=== PATIENT | female | born 1975 | race Caucasian/White ===

== ENCOUNTER 2021-02-06 08:38 | Outpatient (CLI) | payer BC, SELFPAY ==
--- OUTSIDE RECORDS SUMMARY | 2021-02-06 08:42 | XMS_ITS ---
:1975 Author Care Team Providers Name Role Phone DR. MARY LINO Primary Care Provider [phone] AMBAR MCFADDEN OTHER [phone] MIGEL ROSARIO MD OTHER [phone] Allergies Code Code System Name Reaction Severity Status Onset 9869 RxNorm Penicillin g ? ? Active ? Sulfa ? ? Active ? (Sulfonamide Antibiotics) Medications Name Status Start Date Stop Date ? ? anastrozole 1 mg tablet Active 05/07/2020 Not avai lable 1 tablet every day by oral route. Calcium 500 + D Active ? Not available dexamethasone 4 mg tablet Completed ? 2016 gabapentin 300 mg capsule Completed ? 2018 hydromorphone 2 mg tablet Completed ? 2016 lorazepam 0.5 mg tablet Completed ? 08/02/20 17 Lupron Depot Active ? Not available ondansetron 4 mg Completed ? 03/05/2019 disintegrating tablet ondansetron 8 mg Completed ? 08/02/2017 disintegrating tablet oxycodone 5 mg tablet Completed ? 03/05/2019 prochlorperazine maleate 10 mg Completed ? 0 08/02/2017 tablet ranitidine 150 mg tablet Completed ? 017 tamoxifen 20 mg tablet Completed ? 0 Problems Name Status Onset Date Source ? Malignant Tumor of Breast Active 08/02/2017 ? Procedures Date Name Performed by ? 11/07/2018 Ercp Remove Duct Calculi Information not available 11/07/2018 Cholecystectomy Information not avai lable 01/17/2017 Lumpectomy and [place] Node Biopsy Info rmation not available Notes: 1.8 cm +LVI, 1/5 nodes pos, 2. 2 mm met (intramammary LN) 01/10/2017 Core Biopsy Breast Information not avai lable Notes: Left breast 1.3 cm UIQ mass and core biopsy of LN in axilla/axillary tail ? Tubal Ligation Information not avai lable Results Lab Results None recorded. Past Encounters 08/11/2020 Malignant Tumor of Breast Ava Benitez MD: [address] [facility], [address], [place] [address], Ph. 02/27/2020 Malignant Tumor of Breast Ava Benitez MD: [address], [place] [address], Ph. 08/27/2019 Malignant Tumor of Breast Ava Benitez MD: [address] [facility], [address], [place] [address], Ph. Social History Tobacco Smoking Status Never Smoker Vaccine List None recorded. Plan of Care Reminders Provider Appointments None ? ? recorded. Lab None ? ? recorded. Referral None ? ? recorded. Procedures None ? ? recorded. Surgeries None ? ? recorded. Imaging None ? ? recorded. Vitals 08/11/2020 11:00AM FOLLOW UP Height Weight BMI 5 ft 5 in 288 lbs 47.9 kg/m2 02/27/2020 09:00AM FOLLOW UP Height Weight BMI 5 ft 5 in 288 lbs 47.9 kg/m2 08/27/2019 09:00AM FOLLOW UP Height Weight BMI 5 ft 5 in 275 lbs 45.8 kg/m2 03/05/2019 01:30PM FOLLOW UP Height Weight BMI 5 ft 5 in 275 lbs 45.8 kg/m2 08/01/2018 11:30AM FOLLOW UP Height Weight BMI 5 ft 5 in 150 lbs 25 kg/m2 01/10/2018 11:00AM FOLLOW UP Height Weight BMI 5 ft 5 in 150 lbs 25 kg/m2 08/02/2017 10:30AM FOLLOW UP Height Weight BMI 5 ft 5 in 150 lbs 25 kg/m2 02/02/2017 10:00AM POST OP Height Weight BMI 5 ft 5 in 150 lbs 25 kg/m2 01/14/2017 10:00AM NEW CANCER Height Weight BMI 5 ft 5 in 275 lbs 45.8 kg/m2 01/10/2017 08:30AM NEW PT Height Weight BMI 5 ft 5 in 275 lbs 45.8 kg/m2
[2021-02-06 10:35] VITALS: BP 150/89; PULSE 74; RESP 22; TEMP 36.3; O2SAT 97
[2021-02-06] MEDS: Normal Saline 500 ML 30 ML IV (10:50)
[2021-02-06] MEDS: Normal Saline Flush 10 ML SYR IVP (10:51)
[2021-02-06 10:57] VITALS: BP 128/87; PULSE 69; RESP 20; TEMP 37.6; O2SAT 95
[2021-02-06 11:30] VITALS: BP 144/92; PULSE 68; RESP 18; TEMP 37.1; O2SAT 96
[2021-02-06 12:01] VITALS: BP 130/92; PULSE 66; RESP 18; TEMP 36.9; O2SAT 97
[2021-02-06 12:29] VITALS: BP 134/89; PULSE 64; RESP 20; TEMP 37.2; O2SAT 96
== END 2021-02-06 08:39 | disposition home or self-care (01) ==
LOC: INF 08:40
PROVIDERS: PCP Family Medicine; Visit Provider Family Medicine
DX: U07.1 COVID-19 (principal)
CPT/HCPCS: 96365

== ENCOUNTER 2022-04-01 13:26 | Outpatient (REF) | payer BC, SELFPAY ==
--- NOTE | 2022-04-01 10:50 | SKI_PTH ---
PATIENT: Alesha Mendoza LOC: [facility]#:[id number] AGE/SX: 46/F ROOM: RE04/01/[address]: Mirela Gardiner : 1975 BED: DIS: 04/01/2022 SPEC #: [id number] RECD: 04/01/22 18:11 STATUS: MARZENA REQ #: [id number] FRANCES: 04/01/22 10:[address]: Mirela Gardiner DEPT: Surgical Specimen RECD BY: Pippa Shepard ENTERED: 04/01/22 18:12 SP TYPE: RAQUEL FORMAN DR: Amy Jean-Baptiste Tissues: 1 - SKIN BIOPSY(SHAVE/PUNCH) 2 - SKIN BIOPSY(SHAVE/PUNCH) Procedures: SKIN LEVEL 4 Comments: [id number]
== END 2022-04-01 13:27 | disposition home or self-care (01) ==
LOC: NCHCN 13:26
PROVIDERS: PCP Family Medicine; Visit Provider Registered Nurse
DX: D23.72 Other benign neoplasm of skin of left lower limb, including hip (principal); D23.71 Other benign neoplasm of skin of right lower limb, including hip
CPT/HCPCS: 88305

== ENCOUNTER 2025-09-23 18:20 | Outpatient (REF) | payer BC, SELFPAY ==
[2025-09-23 21:26] LABS: Hemoglobin A1C 5.5 % (<5.7)
[2025-09-23 21:28] LABS: TSH (W/Ref FT4) 1.02 uIU/mL (0.55-4.78)
[2025-09-23 21:32] LABS: ALT 34 U/L (10-49); AST 23 U/L (<34); Albumin 4.2 g/dL (3.4-5.0); Alkaline Phosphatase 115 U/L (46-116); Anion Gap 6.8 mmol/L (3-11); BUN 15 mg/dL (9-23); Bilirubin, Total 0.30 mg/dL (0.2-1.2); CO2 28.2 mmol/L (20.0-31.0); Calcium 9.0 mg/dL (8.3-10.6); Chloride 108 mmol/L (98-107); Glucose 84 mg/dL (74-106); Potassium 4.1 mmol/L (3.5-5.1); Sodium 143 mmol/L (136-145); Total Protein 7.1 g/dL (5.7-8.2)
== END 2025-09-23 18:21 | disposition home or self-care (01) ==
LOC: NCHCN 18:20
PROVIDERS: PCP Family Medicine
DX: E66.01 Morbid (severe) obesity due to excess calories (principal); Z85.850 Personal history of malignant neoplasm of thyroid; Z13.1 Encounter for screening for diabetes mellitus
CPT/HCPCS: 80053; 83036; 84443